=== PATIENT | female | born 1970 | race Caucasian/White ===

== ENCOUNTER 2017-01-25 09:13 | Outpatient (CLI) | payer OTHER ==
--- NOTE | 2017-01-25 10:25 | CT ---
CT OF THE ABDOMEN AND PELVIS 01/25/17 PROVIDED CLINICAL HISTORY: Renal calculi. FINDINGS: Comparison made with the study dated 09/06/16. The visualized lung bases are free of significant opacity. Stable noncalcified left lower lobe nodul ar density. Diffuse fatty infiltration of the liver is again seen. The previously described left ureteral calculus is no longer evident. There is persistent marked dil atation of the left renal collecting system and proximal left ureter. There is marked parenchymal vo lume loss involving the left kidney such that only a small rind of parenchyma is present about the d ilated collecting system on the left. No additional urinary tract calculi are evident. There are pun ctate foci of calcification associated with the inferior aspect of the left kidney which appear curv ilinear and may represent collecting system calculi. The solid abdominal organs are suboptimally walker luated without IV contrast but demonstrate an otherwise unremarkable unenhanced CT appearance. There is no bowel dilatation, inflammatory fat stranding, free fluid, or lymph node enlargement appa rent. The osseous structures demonstrate no concerning osteoblastic or osteolytic lesions. 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 IMPRESSION: 1. The previously described left ureteral calculus is no longer evident. There is a persistentl y patulous appearance to the left renal collecting system and left proximal ureter with near total a trophy of the left renal parenchyma. 2. Calcifications at the inferior pole of the left renal collecting system as described above. 3. Fatty infiltration of the liver. POS: [facility]
== END 2017-01-25 09:14 | disposition home or self-care (01) ==
LOC: CT 09:13
PROVIDERS: ATTEND Urology
DX: N20.2 Calculus of kidney with calculus of ureter (principal); N13.2 Hydronephrosis with renal and ureteral calculous obstruction; K76.0 Fatty (change of) liver, not elsewhere classified
CPT/HCPCS: 74176

== ENCOUNTER 2017-08-22 13:43 | Outpatient (CLI) | payer OTHER | END 2017-08-22 13:44 | disposition home or self-care (01) | LOC: BICMAMMO 13:43 | PROVIDERS: ATTEND Student in an Organized Health Care Education/Training Program | DX: Z12.31 Encounter for screening mammogram for malignant neoplasm of breast (principal) | CPT/HCPCS: 77067 ==

== ENCOUNTER 2017-08-31 06:10 | Day surgery (SDC) | payer OTHER ==
[2017-08-30 12:48] VITALS: BMI 58.6
--- NOTE | 2017-08-31 00:14 | HP ---
DATE OF ADMISSION: 08/31/2017 SHORT-STAY HISTORY AND PHYSICAL HISTORY OF PRESENT ILLNESS: This is a 47-year-old female who comes for EGD with chronic ac id reflux. The patient is extremely obese. The patient complains of persistent acid reflux. The pa obey does take PPI, but her symptoms uncontrollable. The patient has also history of occasional dif ficulty swallowing. This happens mostly with meat and bread. The patient comes for EGD because of t he above reason. ALLERGIES: LEVAQUIN, PENICILLIN, MORPHINE. SOCIAL HISTORY: The patient is a former smoker. She drinks alcohol socially. MEDICAL ILLNESSES: 1. Obesity. 2. Depression and anxiety. 3. Chronic acid reflux. 4. PTSD. 5. IBS. 6. Hypothyroidism. 7. Migraine. 8. Allergic rhinitis. PHYSICAL EXAMINATION: GENERAL: The patient is obese. Her weight is 302 pounds. VITAL SIGNS: Pulse is 70, blood pressure 130/80. HEENT: Conjunctivae clear. CARDIOVASCULAR SYSTEM: First and second heart sounds normal. LUNGS: Clear to auscultation. ABDOMEN: Soft to palpate. No organomegaly. No tenderness. No masses. ADMITTING DIAGNOSES: Chronic acid reflux, dysphagia. PLAN: EGD.
--- NOTE | 2017-08-31 09:06 | OP ---
DATE OF PROCEDURE: 08/31/2017 SURGEON: Cordell Eaton M.D. OPERATIVE PROCEDURE: Esophagogastroduodenoscopy. PREOPERATIVE DIAGNOSES: A 47-year-old morbidly obese female with chronic acid reflux, come s in for an EGD. POSTOPERATIVE DIAGNOSES: 1. Normal esophageal mucosa except for the whitish plaque from the Cetacaine spray. Washing out, di d not show any underlying esophageal mucosal injury or any esophagitis. 2. Normal stomach and duodenum. PROCEDURE IN DETAIL: The patient was placed on her left lateral position and was given sedation by A nesthesia Department. Also, the throat was anesthetized with Cetacaine spray. A Pentax video gastro scope under direct vision was passed in the oropharynx to the GE junction, and into the stomach. The vocal cords appeared very healthy. Although the patient complains of chronic and persistent acid re flux, on endoscopy the esophageal mucosa appears normal and no mucosal injury seen. The patient did have extensive whitish material coating the mucosa from the Cetacaine spray. After this was washed o ut the underlying mucosa appears actually normal. There was no esophagitis seen. The GE junction, n o pathology seen. The fundus and cardia, no pathology seen. The gastric body and gastric antrum, an d duodenum, no pathology seen. The stomach was decompressed and scope removed. DISCHARGE PLANNING: This is a 47-year-old female with chronic acid reflux who came for EGD . Surprisingly, the EGD showed no mucosal injury and the mucosa actually appeared normal. The patie nt's risk factor for acid reflux is basically morbid obesity. She is on pantoprazole and ____. DISCHARGE RECOMMENDATIONS: 1. The patient advised to lose weight, consider bariatric surgery like gastric sleeve or gastric byp ass. 2. Continue pantoprazole. 3. Patient instructed about dietary and lifestyle modification.
[2017-08-31] MEDS ORDERED: PROPOFOL 200 MG/20 ML VIAL ONE (13:41)
[2017-08-31] MEDS ORDERED: Lidocaine 1% PF 5 ML VIAL ONE (13:41)
== END 2017-08-31 09:53 | disposition home or self-care (01) ==
LOC: SDC 06:10
PROVIDERS: ATTEND Internal Medicine Gastroenterology
PROC: 0DJ08ZZ Inspection of Upper Intestinal Tract, Via Natural or Artificial Opening Endoscopic (ICD-10-PCS; principal; 2017-08-31)
DX: K21.9 Gastro-esophageal reflux disease without esophagitis (principal); K58.9 Irritable bowel syndrome, unspecified; E03.9 Hypothyroidism, unspecified; J30.9 Allergic rhinitis, unspecified; F32.9 Major depressive disorder, single episode, unspecified; F41.9 Anxiety disorder, unspecified; F43.10 Post-traumatic stress disorder, unspecified; G43.909 Migraine, unspecified, not intractable, without status migrainosus; E66.01 Morbid (severe) obesity due to excess calories; Z68.43 Body mass index [BMI] 50.0-59.9, adult; Z88.0 Allergy status to penicillin; Z88.1 Allergy status to other antibiotic agents; Z88.5 Allergy status to narcotic agent; Z79.899 Other long term (current) drug therapy; Z87.891 Personal history of nicotine dependence

== ENCOUNTER 2018-01-15 09:12 | Outpatient (CLI) | payer OTHER ==
--- NOTE | 2018-01-15 10:55 | CT ---
CT ABDOMEN AND PELVIS WITHOUT IV CONTRAST: INDICATIONS: History of renal calculi, cholecystectomy, , and hysterectomy. COMPARISON: Prior CT of the abdomen and pelvis, dated 01/25/2017. FINDINGS: There are stable, noncalcified pulmonary nodules involving both lower lobes. There is stable severe fatty infiltration of the liver. The gallbladder is surgically absent. There is stable dilation of the left renal collecting system, with punctate calcifications seen invol ving the de la garza of the inferior aspect of the dilated left renal collecting system, at the level of th e renal pelvis. There is marked atrophy of the left kidney, which is stable. Unopacified right kidn ey is unremarkable. The unopacified spleen, pancreas, and adrenal glands are within normal limits. The uterus is surgically absent. The bladder is unremarkable. Unopacified large and small bowel are unremarkable. No definite acute osseous abnormality is evident. IMPRESSION: 1. Stable marked dilatation of the proximal left renal collecting system, with calcifications involv ing the wall of the inferior aspect of the left proximal renal collecting system. Stable left renal atrophy. 2. Prominent fatty infiltration of the liver. 3. Stable noncalcified pulmonary nodule of both lower lobes. POS: [facility]
== END 2018-01-15 09:13 | disposition home or self-care (01) ==
LOC: CT 09:12
PROVIDERS: ATTEND Urology
DX: N20.0 Calculus of kidney (principal); N28.89 Other specified disorders of kidney and ureter; N26.1 Atrophy of kidney (terminal); K76.0 Fatty (change of) liver, not elsewhere classified; R91.8 Other nonspecific abnormal finding of lung field
CPT/HCPCS: 74176

== ENCOUNTER 2018-06-24 15:52 | Outpatient (CLI) | payer OTHER | END 2018-06-24 15:53 | disposition home or self-care (01) | LOC: CTENTCT 15:52 | PROVIDERS: ATTEND Otolaryngology Plastic Surgery within the Head & Neck | DX: J01.81 Other acute recurrent sinusitis (principal) | CPT/HCPCS: 70486 ==

== ENCOUNTER 2018-07-03 09:43 | Day surgery (SDC) | payer OTHER ==
[2018-07-02 12:02] VITALS: BMI 61.5
[2018-07-03] MEDS ORDERED: Oxymetazoline HCl 0.05% ( 15 ML ) ONE ×2 (10:59→12:56)
[2018-07-03] MEDS ORDERED: Oxymetazoline HCl 0.05% (30 ML BOT) ONE (12:16)
[2018-07-03] MEDS ORDERED: Lidocaine 2% w/Epinephrine 1:200K 20 ML VIAL ONE (12:16)
[2018-07-03] MEDS ORDERED: Fentanyl 100 MCG/2 ML VIAL ONE ×2 (12:19→13:39)
[2018-07-03] MEDS ORDERED: Albuterol Sulfate HFA (OR ONLY) ONE (12:22)
[2018-07-03] MEDS ORDERED: Ophthalmic Irrigation Solution 15 ML ONE (13:06)
[2018-07-03] MEDS ORDERED: HYDROcodone/Acetaminophen 5/325 mg Tablet ONE (16:06)
--- NOTE | 2018-07-04 08:41 | OP ---
DATE OF PROCEDURE: 07/03/2018 PREOPERATIVE DIAGNOSES: 1. Recurrent acute sinusitis. 2. Bilateral inferior turbinate hypertrophy. 3. Nasal obstruction. POSTOPERATIVE DIAGNOSES: 1. Recurrent acute sinusitis. 2. Bilateral inferior turbinate hypertrophy. 3. Nasal obstruction. PROCEDURES PERFORMED: 1. Bilateral endoscopic sinus surgery, total ethmoidectomies. 2. Bilateral endoscopic sinus surgery maxillary antrostomies. 3. Bilateral endoscopic sinus surgery, frontal sinusotomies. 4. Bilateral inferior turbinates submucosal resection. ESTIMATED BLOOD LOSS: 20 mL. COMPLICATIONS: None. ANESTHESIA: GETA. DESCRIPTION OF PROCEDURE: The patient was taken to the operating room and placed supine on the table. General endotracheal anesthesia was obtained by the Anesthesia Staff. Tube was secured in the left lower lip and the patient was placed in a beach chair position. Following this, Afrin pledgets were placed in the nasal cavity as the patient was prepped and draped in standard surgical fashion. Following this, Afrin pledgets were removed. A 0-degree endoscope was then advanced in the nasal cavity. 1% lidocaine with 1:100,000 epinephrine was injected into the inferior turbinates, middle turbinates, and lateral nasal wall bilaterally. Following this, the 0-degree scope was advanced in the nasal cavity and the middle turbinates were gently medialized using a [place] elevator bilaterally. Following this, the uncinate process was identified and was anteriorly fractured using a ball-ended probe bilaterally. Following this, the uncinate was removed using the microdebrider and the up-biting Blakesley forceps bilaterally. Following this, the natural maxillary sinus ostia were identified and was gently widened using the curved microdebrider and the straight [place]akes[place] forceps bilaterally. Following this, the ethmoidal bulla was identified bilaterally and was punctured on its medial and inferior aspect with a microdebrider. Using the microdebrider and the up-biting Blakesley forceps, the ethmoidal bulla and anterior ethmoidal cells were opened. Following this, the grand lamella was identified and was punctured into the posterior ethmoidal cells. Working from posterior to anterior, the ethmoidal cells were opened in a mucosal-sparing technique. Following this, the 45-degree endoscope along with a 40-degree microdebrider blade were used to further open the frontal recess cells and the frontal sinus ostia bilaterally. Following this, the inferior turbinates were punctured on the anterior and inferior aspect using submucosal microdebrider and submucosal resection was performed of the anterior and inferior portions of the inferior turbinates bilaterally. Following this, the inferior turbinates were laterally fractured with a [place] elevator. Following this, the nasal cavity was irrigated. Mirapex was placed within the middle meatus bilaterally. Job ID: [id number]
== END 2018-07-03 16:28 | disposition home or self-care (01) ==
LOC: SDC 09:43
PROVIDERS: ATTEND Otolaryngology Plastic Surgery within the Head & Neck
PROC: 099Q8ZZ Drainage of Right Maxillary Sinus, Via Natural or Artificial Opening Endoscopic (ICD-10-PCS; principal; 2018-07-03)
PROC: 09TU8ZZ Resection of Right Ethmoid Sinus, Via Natural or Artificial Opening Endoscopic (ICD-10-PCS; principal; 2018-07-03)
PROC: 09TV8ZZ Resection of Left Ethmoid Sinus, Via Natural or Artificial Opening Endoscopic (ICD-10-PCS; principal; 2018-07-03)
PROC: 099R8ZZ Drainage of Left Maxillary Sinus, Via Natural or Artificial Opening Endoscopic (ICD-10-PCS; principal; 2018-07-03)
PROC: 09QT8ZZ Repair Left Frontal Sinus, Via Natural or Artificial Opening Endoscopic (ICD-10-PCS; principal; 2018-07-03)
PROC: 09QS8ZZ Repair Right Frontal Sinus, Via Natural or Artificial Opening Endoscopic (ICD-10-PCS; principal; 2018-07-03)
PROC: 09TL7ZZ Resection of Nasal Turbinate, Via Natural or Artificial Opening (ICD-10-PCS; principal; 2018-07-03)
DX: J01.91 Acute recurrent sinusitis, unspecified (principal); J34.3 Hypertrophy of nasal turbinates; J34.89 Other specified disorders of nose and nasal sinuses; Z88.1 Allergy status to other antibiotic agents; Z88.5 Allergy status to narcotic agent; Z88.0 Allergy status to penicillin; Z79.899 Other long term (current) drug therapy
CPT/HCPCS: 85014; J3010; J3490; J7620

== ENCOUNTER 2019-06-20 14:01 | Outpatient (CLI) | payer OTHER ==
--- NOTE | 2019-06-20 14:42 | RAD ---
KUB: DATE: 06/20/2019 PROVIDED CLINICAL HISTORY: Renal calculus. FINDINGS: Comparison with CT examination of 01/15/2018. The abdominal bowel gas pattern is nonspecific. Cholecystectomy clips are seen in the right upper day drant. Suture material overlies the left mid abdomen. No radiographically apparent urinary tract calc wei. Osseous structures demonstrate no acute findings. IMPRESSION: No radiographically apparent urinary tract calculi. POS: [facility]
== END 2019-06-20 14:02 | disposition home or self-care (01) ==
LOC: BICRAD 14:01
PROVIDERS: ATTEND Urology
DX: N20.0 Calculus of kidney (principal)
CPT/HCPCS: 74018

== ENCOUNTER 2020-06-10 15:18 | Outpatient (CLI) | payer OTHER | END 2020-06-10 15:19 | disposition home or self-care (01) | LOC: BICULT 15:18 | PROVIDERS: ATTEND Urology | DX: N20.0 Calculus of kidney (principal); N28.89 Other specified disorders of kidney and ureter | CPT/HCPCS: 74018; 76770 ==